=== PATIENT | female | born 1930 | race Caucasian/White ===

== ENCOUNTER 2016-04-07 14:42 | Inpatient (IN) | payer OTHER ==
--- NOTE | 2016-04-07 15:12 | EKG Report ---
Test Performed on : 04/07/2016 3:03:03 PM Test Reason : Stroke like symptoms Blood Pressure : / mmHG Vent. Rate : 065 BPM Atrial Rate : 065 BPM P-R Int : 216 ms QRS Dur : 080 ms QT Int : 420 ms P-R-T Axes : 069 -37 -18 degrees QTc Int : 436 ms Sinus rhythm. with 1st degree AV block. Left axis deviation Moderate voltage criteria for LVH, may be normal variant Abnormal ECG When compared with ECG of 04-APR-2016 12:56, (Unconfirmed) No significant change was found Unconfirmed Result
[2016-04-07 15:16] LABS: MANUAL DIFF NEEDED? NO
[2016-04-07 15:21] LABS: BASO% 0.4 % (0.0-0.8); EOS# 0.37 X1000 (0.0-0.7); HEMATOCRIT 36.6 % (37.0-47.0); HEMOGLOBIN 12.2 g/dL (12.0-16.0); LYMPH# 1.88 X1000 (1.2-3.4); LYMPH% 20.5 % (20.5-51.1); MCH 31.9 PG (27-31); MCHC 33.3 g/dL (33-37); MCV 95.8 FL (81-99); MONO# 1.08 X1000 (0.11-0.59); MONO% 11.8 % (1.7-9.3); MPV 10.3 FL (7.4-10.4); NEUT% 63.3 % (42.2-75.2); PLT 324 X1000 (130-400); RBC 3.82 XMIL (4.2-5.4)
[2016-04-07 15:27] LABS: INR 0.97; PROTIME 10.3 Seconds (9.2-11.7); PTT 25.5 Seconds (22.0-36.0)
[2016-04-07 15:36] LABS: ALBUMIN 3.9 g/dL (3.5-5.0); CALCIUM 8.9 mg/dL (8.8-10.2); POTASSIUM 4.2 mmol/L (3.5-5.1); TOTAL BILIRUBIN 0.17 mg/dL (0.20-1.00); TOTAL PROTEIN 6.8 g/dL (6.3-8.3)
--- NOTE | 2016-04-07 15:44 | Diag Imaging Result Document ---
PROCEDURE NAME: HEAD W/O CONTRAST - 04/07/2016 CT HEAD WITHOUT CONTRAST: FINDINGS: A dose reduction protocol was used. Compared to 04/04/2016. There are chronic microvascular ischemic changes similar to the previous exam. There is no indication of recent infarct, although acute infarcts may not be immediately visible. There is no evidence of hemorrhage, mass effect, or midline shift. IMPRESSION: Chronic microvascular ischemic changes. No visible acute intracranial abnormality. No hemorrhage or mass effect.
--- NOTE | 2016-04-07 15:51 | Diag Imaging Result Document ---
PROCEDURE NAME: CHEST-1 VIEW - 04/07/2016 UPRIGHT SITTING AP CHEST: COMPARISON: 04/04/2016. FINDINGS: The lungs are well expanded. The heart is mildly prominent. This is similar to the prior exam. The vessels are not distended. No pneumonia. No pleural effusions identified. IMPRESSION: Stable chest.
--- NOTE | 2016-04-07 16:10 | PROVIDER DOCUMENTATION ---
HPI-Neurological Disorder - General Chief Complaint: Stroke-Like Symptoms Stated Complaint: HIGH B/P,LEFT LEG WEAKNESS,DIZZINESS Time Seen by Provider: 04/07/16 14:57 Source: patient, family (SON/DAUGHTER) Allergies/Adverse Reactions: Patient Allergies Allergy/AdvReac Type Severity Reaction Status Date / Time fexofenadine HCl * AdvReac Severe Unknown Verified 03/16/15 12:02 [From Bernadine-D 12 Hour] pseudoephedrine HCl * AdvReac Severe Unknown Verified 03/16/15 12:02 [From Bernadine-D 12 Hour] Home Medications: Levothyroxine [Synthroid] 100 microgm PO DAILY 06/17/12 Acebutolol [Sectral] 200 mg PO BID 04/04/16 Clonazepam [Klonopin] 1 mg PO HS 04/04/16 Lisinopril 10 mg PO DAILY 04/04/16 - History of Present Illness-Neuro Nature of Presenting Problem: 85 y/o F presents to ED cc of poss stroke. Son states pt was seen in ED on Monday due to dizziness and L leg numbness and increased BP. Son went to check on pt and she has gotten worse. Pt can now not put any weight on L leg and has been dragging when walking. Pt denies any CP/ABD PAIN. Pt is AOX3. Son and daughter states pt BP has been increasing since being seen on Monday. Daughter states pt has just been saying she is dizzy and "does not feel right". Severity: reports: mild Onset/Duration: reports: 5 days ago Timing: reports: still present Context: reports: none Character of Altered Mental Status: reports: N/A Any recent trauma/injury?: reports: none Character of Deficits: reports: new weakness (L leg), decreased ability to walk (no weight on L leg) New weakness or altered sensation location:: reports: other (L LEG) Cognitive Baseline: alert, oriented x3 Gait Baseline: uses a walker Associated Symptoms: reports: dizziness, weakness (L leg). denies: short of breath Similar Symptoms Previously?: Yes (wednesday 04/04) Recently seen or treated by another doctor?: Yes (wednesday 04/04) Review of Systems - Adult - REVIEW OF SYSTEMS - ADULT ROS:: ROS per family Constitutional: denies: chills, fever Cardiovascular: denies: chest pain, palpitations Respiratory: denies: cough, shortness of breath Gastrointestinal: denies: abdominal pain, diarrhea, nausea, vomiting Musculoskeletal: reports: muscle weakness (L leg/ not weight bearing). denies: bone pain Neurological: reports: dizziness/vertigo, slurred speech (mild). denies: headache/migraines, syncope Past History - Adult - PAST MEDICAL HISTORY-ADULT Review of Records: reports: Old Records Reviewed, Nursing Assessment Review Cardiovascular: reports: HTN, hyperlipidemia, other (stent) Respiratory: reports: asthma Endocrine/Immune: reports: thyroid disorder - PRIOR SURGERIES/PROCEDURES Surgical/Procedure History: reports: appendectomy, cholecystectomy, cardiac stent, tonsillectomy - IMMUNIZATION STATUS Childhood Immunizations: See Nurse Assessment Flu Vaccine: See Nurse Assessment - FAMILY HISTORY Family History: reviewed, not pertinent - SOCIAL HISTORY Smoking: denies Substance Use: none/never Alcohol Use Frequency: never Living Situation: alone Physical Exam- Neurological - Physical Exam-Neuro General Appearance: appears well, alert, no apparent distress HENMT: normocephalic/atraumatic, moist mucous membranes Head Injury: no evidence of injury Neck: non-tender, full range of motion Respiratory: chest non-tender, lungs clear, normal breath sounds Cardiovascular: normal peripheral pulses, regular rate, rhythm Lymphatic: no adenopathy Extremity: normal range of motion, non-tender Motor/Sensory: no motor deficit, no sensory deficit Neurologic: grossly normal, no motor/sensory deficits Integumentary: normal color, normal turgor, warm/dry Psych/Mental Status: normal mood/affect - Glascow Coma Scale Best Eye Response: (4) open spontaneously Best Verbal Response: (5) oriented Best Motor Response: (6) obeys commands Total Glascow Score: 15 Progress - PLAN OF CARE/RESULTS Progress/Plan/Lab Results: PLAN: HEAD SCAN, LABS. FAMILY VERBALLY UNDERSTANDS. Laboratory Tests 04/07/16 04/07/16 04/07/16 15:07 15:07 15:07 WBC 9.15 RBC 3.82 L Hgb 12.2 Hct 36.6 L MCV 95.8 MCH 31.9 H MCHC 33.3 RDW Std Deviation 12.5 Plt Count 324 MPV 10.3 Immature Gran % (Auto) 0.0 Neut % (Auto) 63.3 Lymph % (Auto) 20.5 [place] % (Auto) 11.8 H Eos % (Auto) 4.0 Baso % (Auto) 0.4 Immature Gran # (Auto) 0.00 Neut # 5.78 Lymph # 1.88 [place] # 1.08 H Eos # 0.37 Baso # 0.04 PT 10.3 INR 0.97 PTT (Actin FS) 25.5 Sodium 140 Potassium 4.2 Chloride 101 Carbon Dioxide 25 Anion Gap 14 BUN 17 Creatinine 1.0 H Estimated GFR/1.73 m2 53 BUN/Creatinine Ratio 17 Glucose 104 Calculated Osmolality 281 Calcium 8.9 Total Bilirubin 0.17 L AST 18 ALT 13 Alkaline Phosphatase 121 H Troponin T Total Protein 6.8 Albumin 3.9 Globulin 2.9 Albumin/Globulin Ratio 1.3 04/07/16 15:07 WBC RBC Hgb Hct MCV MCH MCHC RDW Std Deviation Plt Count MPV Immature Gran % (Auto) Neut % (Auto) Lymph % (Auto) [place] % (Auto) Eos % (Auto) Baso % (Auto) Immature Gran # (Auto) Neut # Lymph # [place] # Eos # Baso # PT INR PTT (Actin FS) Sodium Potassium Chloride Carbon Dioxide Anion Gap BUN Creatinine Estimated GFR/1.73 m2 BUN/Creatinine Ratio Glucose Calculated Osmolality Calcium Total Bilirubin AST ALT Alkaline Phosphatase Troponin T < 0.010 Total Protein Albumin Globulin Albumin/Globulin Ratio Orders Category Date Time Status Cardiac Monitoring DIRECTED Care 04/07/16 14:53 Active Finger Stick Blood Sugar (ED) DIRECTED Care 04/07/16 14:53 Active Saline Loc NOW Care 04/07/16 14:53 Active CHEST-1 VIEW [RAD] Stat Exams 04/07/16 14:53 Completed HEAD W/O CONTRAST [CT] Stat Exams 04/07/16 14:53 Completed CBC WITH ELECTRONIC DIFF [HEME] Stat Lab 04/07/16 15:07 Completed COMPREHENSIVE METABOLIC PANEL [CHEM] Stat Lab 04/07/16 15:07 Completed PROTIME WITH INR [COAG] Stat Lab 04/07/16 15:07 Completed PTT [COAG] Stat Lab 04/07/16 15:07 Completed TROPONIN T Stat Lab 04/07/16 15:07 Completed URINALYSIS W/POSS RFLX CULT [URINALYSIS] Stat Lab 04/07/16 14:53 Uncollected URINE DRUG SCREEN Stat Lab 04/07/16 14:53 Uncollected EKG [EKG] Stat Ther 04/07/16 14:53 Draft Vital Signs - 24 hr 04/07/16 14:50 Temperature 98.4 F Pulse Rate 72 Respiratory 16 Rate Blood Pressure 188/90 O2 Sat by Pulse 98 Oximetry - REASSESSMENT Reassessment #1 Time Reassessed: 16:45 Status: unchanged Reassessment Comment: pt still says she does not feel right. Reassessment #2 Time Reassessed: 17:08 Status: improving (family and pt are notified pt will be admitted for further evalution .) - XRAY 1 XRAY: Bilateral XRAY Study: Chest Impression: Normal XRAY Interpretation: stable chest - CT/MRI 1 CT Study: Head Impression: Abnormal (chronci microvascular ischemic changes. no visible acute intracranial adormality. No hemorrhage or mass effect.) CT Results: see impression - CONSULTS/PCP/HOSPITALIST Notification #1 *Consult/PCP/Hospitalist*: Time Discussed: 17:02 Consult Disposition: Admit Departure - Departure Time of Disposition Order: 16:50 DIAGNOSIS: CVA (cerebral vascular accident) Qualifiers: CVA mechanism: unspecified Qualified Code(s): I63.9 - Cerebral infarction, unspecified Hypertension Qualifiers: Hypertension type: unspecified secondary hypertension Qualified Code(s): I15.9 - Secondary hypertension, unspecified; I15 - Secondary hypertension Disposition: ADMITTED INPATIENT 09 Certified Medical Emergency: Emergent Condition: Stable Referrals: Bobby Olmstead MD [Primary Care Provider] - Attestation - Scribe Verification/Attestation Scribe:: Anita Jones Acting as Scribe for:: Heath Brothers Scribe documention review:: This chart was documented by a scribe and accurately reflects the service the provider performed and the decisions made by the provider.
--- NOTE | 2016-04-07 16:24 | ED EKG INTERP ---
EKG Interpretation - EKG Time of EKG reading by physician:: 15:03 EKG Read and Signed by:: Heath Brothers EKG Interpretation (*Must complete 3 of following elements*): Abnormal Rate: 65 Rhythm: sinus with 1st degree AV block [place]: left (deviation) QRS: LVH MS Interval: normal ST Wave: normal
[2016-04-07 17:45] LABS: URINE MICRO REVIEW NEEDED? NO; URINE SOURCE CLEAN CATCH
[2016-04-07 17:50] LABS: BILIRUBIN URINE NEGATIVE (NEGATIVE); BLOOD URINE NEGATIVE (NEGATIVE); COLOR YELLOW; GLUCOSE URINE NEGATIVE (NEGATIVE); LEUKOCYTES URINE MODERATE (NEGATIVE); NITRITE URINE POSITIVE (NEGATIVE); PROTEIN URINE NEGATIVE (NEGATIVE); TURBIDITY URINE CLEAR (CLEAR); UROBILINOGEN URINE NORMAL (NORMAL)
[2016-04-07 17:52] LABS: UR EPITHELIAL CELLS <10 /HPF (<10); URINE BACTERIA 4+ /HPF; URINE CULTURE NEEDED? YES; URINE RBC <10 /HPF (<10)
[2016-04-07 17:58] LABS: UR AMPHETAMINES QUAL NONE DETECTED (NONE DETECT); UR BARBITUATES QUAL NONE DETECTED (NONE DETECT); UR BENZODIAZEPIN QUAL NONE DETECTED (NONE DETECT); UR CANNABINOIDS QUAL NONE DETECTED (NONE DETECT); UR COCAINE QUAL NONE DETECTED (NONE DETECT); UR METHADONE QUAL NONE DETECTED (NONE DETECT); UR OPIATES QUAL NONE DETECTED (NONE DETECT); UR OXYCODONE QUAL NONE DETECTED (NONE DETECT); UR PCP QUAL NONE DETECTED (NONE DETECT)
--- NOTE | 2016-04-07 18:22 | HISTORY AND PHYSICAL ---
PRIMARY CARE PHYSICIAN: Bobby Olmstead MD CHIEF COMPLAINT: Left-sided weakness. HISTORY OF PRESENT ILLNESS: Ms. Morales is a very pleasant 85-year-old, female with a history of known coronary artery disease status post stenting, hypertension, hyperlipidemia, and hypothyroidism, who presents to the ER with left-sided weakness, hypertension and headache. She has been having symptoms actually since last week. She has been having reports of dizziness, left leg numbness and elevated blood pressure. She came to the ER on Monday, a head CT was done and it was found to be negative. She was sent home with a prescription for aspirin, which she is currently not on because she states she has had some type of reaction that caused her right hand to swell up. However, the specifics were unclear. She was taken off of her statin and aspirin by her information technology consultant at the time, Dr. Edwards. At any rate, since Monday her symptoms have not gotten any better. She has been having continued dizziness, continues to feel like she just "does not feel right" and she has also had left leg numbness. When she got to the ER today, a head CT was done, and again did not show anything acute. Her laboratory data is largely unremarkable. On physical examination the patient is awake, and oriented and she follows commands. She actually has no deficits at this time. As such, we are going to place her in the hospital overnight for observation. We will get an MRI in the morning and monitor her neurologic status overnight. PAST MEDICAL HISTORY: 1. Coronary artery disease status post stenting. 2. Hypertension. 3. Hyperlipidemia. 4. Hypothyroidism. PAST SURGICAL HISTORY: Bilateral cataract surgery, appendectomy, cholecystectomy, tonsillectomy, right shoulder arthroplasty. SOCIAL HISTORY: Patient lives alone. She is . She denies tobacco, alcohol or drug use. Strong family support at the bedside. FAMILY HISTORY: Noncontributory. REVIEW OF SYSTEMS: Ten point review of systems obtained and found to be negative with the exception of the HPI. HOME MEDICATIONS: Synthroid 100 mcg p.o. daily. Sectral 200 mg b.i.d. Klonopin 1 mg at bedtime. Lisinopril 10 mg p.o. daily. ALLERGIES: Bernadine D. PHYSICAL EXAMINATION: VITAL SIGNS: Blood pressure 188/90, heart rate 72, respiratory rate 16, O2 saturation 98% on room air. Temperature is 98.4 degrees. GENERAL: Pleasant elderly appearing 85-year-old, female, lying in hospital bed in no acute distress. NEUROLOGIC: The patient is awake, alert, and oriented. She follows commands and there are no appreciable focal deficits. HEENT: Head is atraumatic and normocephalic. Her pupils are equal, round, reactive to light. Oral mucosa is moist. Trachea is midline. No JVD or carotid bruits. CHEST: Clear to auscultation bilaterally. CARDIOVASCULAR: Regular rate and rhythm. S1-S2 is noted. No murmurs, gallops, clicks, or rubs. GI: Soft, nondistended, nontender. Bowel sounds are positive. EXTREMITIES: Without edema, clubbing or cyanosis. Pulses are palpable bilaterally. DIAGNOSTIC DATA: Head CT does not show anything acute, chronic changes noted. EKG shows normal sinus rhythm with first-degree AV block and left ventricular hypertrophy, no acute ST or T abnormalities. Chest x-ray does not show anything acute. WBC 9.15, hemoglobin 12.2, hematocrit 36.6, platelet count 324,000. Coagulase within normal limits. Chemistry is unremarkable. Troponins are negative. ASSESSMENT AND PLAN: 1. Reported left-sided weakness: Patient does not exhibit any focal deficits at this time. She is alert and oriented. We will check a magnetic resonance imaging of her brain in the morning, we will also check carotid ultrasound and echocardiogram, do neurologic checks overnight and allow for permissive hypertension and check a hemoglobin A1c and lipid panel in the morning. Patient could certainly stand to be put on aspirin and statin. However, her side effect is unclear at this time. We will inquire into this further. She did restart aspirin on Monday without any problems. 2. Coronary artery disease: We will check an echo, continue cardiac enzymes overnight and check a lipid panel in the morning. We will continue aspirin which was started on Monday, and likely add a statin pending her evaluation into the side effects of her statin. 3. Hyperlipidemia: Currently untreated. Please see numbers 1 and 2. 4. Hypothyroidism: We will check a thyroid function, B12 and folate and continue her Synthroid. 5. Further recommendations to follow. Dictated by NATHALIE Moreno for Raymond Dan MD
[2016-04-07] MEDS: ROCEPHIN 1 GM/NS 50 ML IV SCH (18:27)
[2016-04-07] MEDS ORDERED: APRESOLINE IV PRN (18:55)
[2016-04-07 20:04] LABS: FREE T4 1.13 ng/dL (0.93-1.70)
[2016-04-07] MEDS: ATIVAN PO SCH (21:44)
--- NOTE | 2016-04-07 22:40 | Diag Imaging Result Document ---
PROCEDURE NAME: HIP W/PELVIS BILAT 2 VIEWS - 04/07/2016 PELVIS AND BILATERAL HIPS, FIVE VIEWS: FINDINGS: No fracture or dislocation to either hip. No significant arthritic changes. The hip joints are symmetrical. IMPRESSION: No acute abnormality.
[2016-04-08 04:09] LABS: MCH 31.6 PG (27-31); MCHC 33.3 g/dL (33-37); MCV 94.7 FL (81-99); MPV 10.3 FL (7.4-10.4); RBC 4.12 XMIL (4.2-5.4)
[2016-04-08 04:23] LABS: HEMOGLOBIN A1C 5.1 % (4.8-6.0)
[2016-04-08 04:27] LABS: AGAP 14; BUN 15 mg/dL (8-22); CALCIUM 9.3 mg/dL (8.8-10.2); CHLORIDE 102 mmol/L (98-107); COSMO 284; SODIUM 142 mmol/L (136-145); TCO2 26 mmol/L (25-35)
[2016-04-08] MEDS: SYNTHROID PO SCH (06:24)
[2016-04-08] MEDS: LOVENOX SUBQ SCH (09:29)
[2016-04-08] MEDS: ASPIRIN PO SCH (12:22)
--- NOTE | 2016-04-08 13:05 | Diag Imaging Result Document ---
PROCEDURE NAME: MRI BRAIN W W/O CONTRAST - 04/07/2016 MRI OF THE BRAIN WITH AND WITHOUT GADOLINIUM: FINDINGS: There is extensive abnormal T2-weighted signal intensity in the periventricular white matter of both hemispheres. There are also punctate and patchy areas of increased signal intensity in the subcortical white matter, particularly over the left parietal lobe posteriorly. Some of these areas demonstrate decreased T1-weighted signal intensity, indicating chronic encephalomalacia. There are also 2 fairly old appearing lacunes present in the shanta. There is a small focus of restricted diffusion in the centrum semiovale/subcortical white matter of the parietal convexity on the left and a second area posterior to the atrium of the left ventricle on the left. There is also an area of restricted diffusion on the right side of the lower midbrain/shanta. There is no evidence of bleed or abnormal extraaxial fluid collection. There is an apparent anomalous vessel entering the right cerebellar hemisphere from the area of the tentorium. This is possibly an AV malformation, such as a venous angioma. Otherwise, there is no evidence of abnormal gadolinium enhancement. IMPRESSION: 1. Multifocal areas of restricted diffusion on top of extensive chronic microvascular ischemic white matter change. The multiple vascular territories represented would suggest the possibility of a central source of emboli. 2. 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 The findings were discussed with Peter Acosta at 1230 hours by telephone.
[2016-04-08] MEDS: PLAVIX PO SCH (13:36)
[2016-04-08] MEDS: CRESTOR PO SCH (13:36)
--- NOTE | 2016-04-08 13:40 | PROGRESS NOTE ---
DATE: 04/08/2016 Today Ms. Morales refers to be doing a whole lot better. Still complained to have the weakness in the left leg and the right arm. The patient refers to have some foul smelling urine but she does not have any burning. OBJECTIVE: Vital signs: Blood pressure is 158/57, pulse of 63, respirations 16, temperature is 98.4 degrees. General: Ms. Morales is an 85-year-old female. She was in bed. Not in any distress. HEENT: Mucosa is pink and moist. Anicteric. Acyanotic. Neck: Supple. Chest: Clear. Cardiovascular: Regular rate and rhythm. Abdomen: Soft, slightly distended but nontender. Bowel sounds were present. Extremities: No pedal edema. IMPROVEMENT ENGINEER: Patient is alert. She is oriented x4. She has about 4- power in the left lower extremity and upper extremity. The right side is normal. There is also a mild pronation drift on the right upper extremity. Reflexes are slightly hyperreflexive on the left side. Tone is normal bilaterally. Cranial nerves are intact. LABORATORY DATA: Reviewed, unremarkable. LABORATORY DATA: WBC is 9.88, hemoglobin is 13.0, platelet count 355,000. Chemistry reviewed completely normal. Total cholesterol is 247. A pelvic x-ray done yesterday is no acute abnormality. A CT scan of the brain which was done showed chronic microvascular changes. No visible acute intracranial abnormality. However an MRI done this morning shows multiple infarcts of unclear age. We will be waiting on the official report. CURRENT MEDICATIONS INCLUDE: Aspirin, ceftriaxone, levofloxacin, p.r.n. hydralazine and levothyroxine. A urine culture is also positive for gram-negative rods 100,000 colony formation units. ASSESSMENT: 1. Left-sided weakness likely due to CVA. Patient as I said has multiple infarcted areas on the on the DWI. Will still be pending on the official report. Depending on report we might ask Cardiology to evaluate the patient and then do a LEYDA to rule out cardiac emboli. 2. History of coronary artery disease noted. 3. Dyslipidemia. Will start the patient on statins. 4. Hypothyroidism. Continue with supplement with Synthroid. 5. Hypertension. For now we would allow for some permissive hypertension. We will discontinue the hydralazine p.r.n. 6. Gram-negative [place] urinary tract infection. Patient is on ceftriaxone. We will keep her on that until we have the ID and sensitivity.
--- NOTE | 2016-04-08 15:12 | CONSULTATION ---
DATE OF CONSULTATION: 04/08/2016 INDICATION FOR THE CONSULTATION: Stroke history. HISTORY OF PRESENT ILLNESS: Ms. Morales is an 85-year-old white female with a history of coronary disease, previous PCI, hypertension, hyperlipidemia, who presented with complaints of left-sided weakness as well as hypertension and headache. She was found to have extensive chronic microvascular ischemic changes in multiple vascular territories suggesting infarct and possible embolic source. On MRI imaging. Since that time, she thinks her weakness has improved. She has no swallowing deficits and no speech deficits. She has no history of stroke before. No recent issues with falls and she is not having any bleeding issues. PAST MEDICAL HISTORY: Significant for 1. Coronary disease with previous PCI. 2. Hyperlipidemia. 3. Hypertension. 4. Hypothyroidism. SOCIAL HISTORY: She does not smoke. She has lived alone. She is . No alcohol. REVIEW OF SYSTEMS: Ten system review of systems is negative except for those mentioned HPI. PHYSICAL EXAMINATION: VITAL SIGNS: She is afebrile. Heart rates are in the 50s to 70s. Most recent blood pressure is 158/67. GENERAL: No acute distress. HEENT: Oropharynx is moist. Normal dentition. Eye examination shows pink conjunctivae. White sclerae. NECK examination shows no obvious thyromegaly or thyroid tenderness. CARDIOVASCULAR: She is in a regular rate and rhythm. She has no obvious murmurs. No S3. No lower extremity edema. CHEST exam is clear to auscultation bilaterally. No increased work of breathing. ABDOMEN: Soft, nontender, nondistended. No obvious organomegaly. SKIN: Warm and dry throughout. There are no new rashes. NEUROLOGICAL: Her cranial nerves 2-12 are intact. She does not seem to have any lateralizing deficits in the cranial nerve territories. She does possibly have some very minimal weakness noted in the left upper extremity that seems different from the right, otherwise, unremarkable. PSYCHIATRIC: She is alert, oriented, pleasant. Normal mood and affect. Telemetry is unremarkable. EKG shows sinus rhythm, 65 beats per minute. First-degree AV block. LABORATORY DATA: Her laboratory data shows a white count of 9.8, hematocrit is 39, platelet count is 355,000. Her sodium is 142, potassium is 4. Her BUN is 15, creatinine 0.8. Her cardiac enzymes are negative times multiple sets. Her LDL was 189. ASSESSMENT: 1. Bilateral cerebrovascular accidents. 2. Hypertension. 3. Hyperlipidemia. Her echo will be reviewed. If there is any evidence of intracardiac thrombus then we would likely not have to proceed with LEYDA; otherwise, if she is here on Monday, we could perform the LEYDA; if not, she can have that done as an outpatient. I agree with current medications that she is currently on of aspirin and Plavix as well as high-dose statin therapy. She is currently in the permissive hypertension phase of her stroke treatment.
--- NOTE | 2016-04-08 16:52 | ECHO REPORT ---
ORDER DATE: 04/07/2016 STUDY: This is a 2D, M-mode, color Doppler exam. This is a technically satisfactory study. INTERPRETATION: 1. The left ventricle is normal in size without hypertrophy and with preserved overall systolic function. Estimated left ventricular ejection fraction is between 65% and 70%. 2. There is mild enlargement of left atrium. The right atrium is normal in size. 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 There is no evidence of shunting across this structure, however, on color Doppler. 3. The right ventricle has preserved size and function. 4. There is no pericardial effusion. 5. The aortic valve is trileaflet. The leaflets are sclerotic without evidence for stenosis or insufficiency. 6. The mitral valve is intact. There is mild mitral annular calcification. The tricuspid valve is intact. 7. There is mild mitral regurgitation and mild tricuspid regurgitation. 8. The peak pulmonary artery pressure is estimated to be between 25 and 30 mmHg. 9. No obvious intracardiac masses or thrombi are noted.
[2016-04-08] MEDS: ROCEPHIN 1 GM/NS 50 ML IV SCH (17:46)
[2016-04-08] MEDS: ATIVAN PO SCH (20:06)
[2016-04-09 05:54] LABS: HEMATOCRIT 37.1 % (37.0-47.0); HEMOGLOBIN 12.5 g/dL (12.0-16.0); MCH 32.4 PG (27-31); MCHC 33.7 g/dL (33-37); MCV 96.1 FL (81-99); MPV 10.2 FL (7.4-10.4); RBC 3.86 XMIL (4.2-5.4)
[2016-04-09] MEDS: SYNTHROID PO SCH (06:10)
[2016-04-09 06:20] LABS: AGAP 13; BUN 15 mg/dL (8-22); CALCIUM 9.1 mg/dL (8.8-10.2); CHLORIDE 102 mmol/L (98-107); COSMO 279; POTASSIUM 3.4 mmol/L (3.5-5.1); SODIUM 139 mmol/L (136-145); TCO2 24 mmol/L (25-35)
[2016-04-09] MEDS ORDERED: KLOR-CON PO ONE (09:32)
[2016-04-09] MEDS: CRESTOR PO SCH (09:58)
[2016-04-09] MEDS: PLAVIX PO SCH (09:58)
[2016-04-09] MEDS: ASPIRIN PO SCH (09:58)
[2016-04-09] MEDS: LOVENOX SUBQ SCH (09:58)
--- NOTE | 2016-04-09 17:12 | PROGRESS NOTE ---
DATE: 04/09/2016 SUBJECTIVE: Today Ms. Morales referred to be doing a whole lot better. She had a session with physical therapy and was told that she was doing fine. OBJECTIVE: Vital signs: Blood pressure is 156/65, pulse of 77, respirations 18 , temperature 98.4 degrees. General: Ms. Morales 85-year-old female. She was in bed. Did not seem to be in any distress. HEENT: Mucosa is pink and moist. Anicteric. Acyanotic. Neck: Supple. Chest: Clear. Cardiovascular: Regular rate and rhythm. Abdomen: Soft, slightly distended. Extremities: No pedal edema. GRAPHICS PROGRAMMER: Patient is alert, is oriented x4. There seems to be a residual left-sided weakness but otherwise neurological exam is intact. DIAGNOSTIC STUDIES: An MRI that was done 3 days ago shows multifocal areas of restricted diffusion on top of the extensive chronic microvascular ischemic changes. ASSESSMENT: 1. Left-sided weakness. Is improving. 2. 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 Patient has been evaluated by Cardiology and there is a plan to do a LEYDA on Monday. 3. History of coronary artery disease noted. 4. Dyslipidemia. Patient is on statin. 5. Hypothyroidism. Will continue with Synthroid. 6. Hypertension is relatively stable. We will continue to allow for some permissive hypertension. 7. Escherichia coli urinary tract infection. Patient is on ceftriaxone and we plan to continue the IV antibiotics until after the LEYDA then we will switch it. 8. Hypokalemia. We will replace this. [facility]
[2016-04-09] MEDS: ROCEPHIN 1 GM/NS 50 ML IV SCH (19:01)
[2016-04-09] MEDS: ATIVAN PO SCH (22:44)
[2016-04-10] MEDS: SYNTHROID PO SCH (06:14)
[2016-04-10 06:38] LABS: HEMATOCRIT 36.9 % (37.0-47.0); MCH 31.7 PG (27-31); MCHC 32.5 g/dL (33-37); MCV 97.4 FL (81-99); MPV 10.4 FL (7.4-10.4); RBC 3.79 XMIL (4.2-5.4)
[2016-04-10 07:39] LABS: AGAP 15; BUN 19 mg/dL (8-22); CALCIUM 8.9 mg/dL (8.8-10.2); CHLORIDE 105 mmol/L (98-107); COSMO 289; POTASSIUM 4.3 mmol/L (3.5-5.1); SODIUM 144 mmol/L (136-145); TCO2 24 mmol/L (25-35)
[2016-04-10] MEDS: LOVENOX SUBQ SCH (09:44)
[2016-04-10] MEDS: PLAVIX PO SCH (09:44)
[2016-04-10] MEDS: CRESTOR PO SCH (09:44)
[2016-04-10] MEDS: ASPIRIN PO SCH (09:44)
--- NOTE | 2016-04-10 14:27 | PROGRESS NOTE ---
DATE: 04/10/2016 SUBJECTIVE: Overall patient appears stable. She has no complaints today. OBJECTIVE: Heart rate is in the 70s, blood pressure is 152s over 60s. General: On exam this is a well-developed female. She is awake and alert. Chest: Clear. Cardiovascular: Reveals a regular rate and rhythm. Abdomen: Positive bowel sounds. Nontender. Extremities: There is no edema. IMPRESSION: Status post cerebrovascular accident. Patient's echocardiogram shows a thinned intraatrial septum with no obvious shunting. No other significant abnormality is noted. Patient is being considered for transesophageal echocardiogram.
[2016-04-10] MEDS: ROCEPHIN 1 GM/NS 50 ML IV SCH (17:02)
--- NOTE | 2016-04-10 17:59 | PROGRESS NOTE ---
DATE: 04/10/2016 SUBJECTIVE: Today Ms. Morales referred to be doing a whole lot better. She is just pending for a LEYDA to be done. OBJECTIVE: Vital signs: Blood pressure is 152/64, pulse of 70, respirations 16, temperature 97.7 degrees. General: Ms. Morales is an 85-year-old female. She was in bed. She did not seem to be in any distress. HEENT: Mucosa is pink and moist. Anicteric and acyanotic. Neck: Supple. Chest: Clear. Cardiovascular: Regular rate and rhythm. Abdomen: Soft, slightly distended, But nontender. No hepatosplenomegaly. Extremities: No pedal edema. TURKEY PINNER: Patient is alert, oriented x4. There is normal power, 5/5 in all extremities. Reflexes are normal bilateral. LABORATORY DATA: CBC reviewed, completely unremarkable. Chemistry reviewed, unremarkable. ASSESSMENT: 1. Left-sided weakness secondary to cerebrovascular accident has improved. 2. Multi-zonal cerebral infarct infarcts concerning for cardiac emboli. The patient has been scheduled for transesophageal echocardiogram tomorrow. 3. History of coronary artery disease, stable. 4. Dyslipidemia. Patient is on statin. 5. Hypothyroidism. We will continue with Synthroid. 6. Hypertension, controlled. 7. Escherichia coli urinary tract infection. Patient continues to be on ceftriaxone until after the transesophageal echocardiogram. 8. Hypokalemia is replaced. PLAN: Patient is doing a whole lot better. We will continue with the current antibiotics. Hope to switch it to oral once patient finishes the transesophageal echocardiogram. Patient has been evaluated by physical therapy and it looks like she should be able to do well going home. So once transesophageal echocardiogram is done and there is nothing grossly abnormal to hold her in the hospital, we will discharge her home.
[2016-04-10] MEDS: ATIVAN PO SCH (22:42)
[2016-04-11] MEDS: SYNTHROID PO SCH (06:15)
[2016-04-11] MEDS: ASPIRIN PO SCH (09:03)
[2016-04-11] MEDS: CRESTOR PO SCH (09:03)
[2016-04-11] MEDS: PLAVIX PO SCH (09:03)
[2016-04-11] MEDS: LOVENOX SUBQ SCH (09:04)
--- NOTE | 2016-04-11 12:22 | CONSULTATION ---
DATE OF CONSULTATION: 04/11/2016 REASON FOR CONSULTATION: Ms. Morales is 85 years old and it looks like she has had a stroke. History from the patient is that she had a little bit of baseline unsteady gait due to joint problems in her legs and otherwise was at baseline on . On morning she felt well. Around noon time on , she noted sudden onset of left-sided weakness, unsteady gait, a sense that "mouth was full" without definite dysarthria and without trouble chewing or swallowing. There was no vision disturbance. She had some headache which eventually resolved. There was no altered consciousness or collapse. She reports left sided weakness persisted and then began gradually improving in the last few days. She reports no previous history of stroke, seizure, serious head injury, other neurologic event. Workup this admission includes brain MRI with and without contrast, showing extensive white matter changes and bilateral areas of restriction on diffusion-weighted imaging. Plans are for her to have LEYDA when available. Admission blood pressures were 180s to 190s, mostly 150s and 160s systolically recently. She has been afebrile. Urine drug screen was all negative, but home medications include lorazepam 1 mg at bedtime. She reports previously being treated with medicine to lower cholesterol and she took clopidogrel in the past. She stopped clopidogrel a few years ago because of "burst blood vessel in my hand." She was not taking aspirin or clopidogrel prior to this admission but both of those have been started here. She reports taking medicine for cholesterol and stopped that a few years ago at the same time she stopped some other medicines. Not clear that she had any problems tolerating statin drug. She has been started on rosuvastatin here. PAST HISTORY: Is remarkable for ischemic heart disease, coronary stenting, hypertension, dyslipidemia, hypothyroidism. PHYSICAL EXAMINATION: On exam, she is awake, alert, attentive and appropriate. Speech is not dysarthric now. Language function is intact. I did not test her cognitive function. Head and neck are unremarkable. Visual valle are full, tested grossly by confrontational finger counting. Extraocular movements are full. Facial motility is diminished on the left in a mostly upper motor neuron pattern. Gag is intact. Tongue protrudes in the midline. She has good shoulder shrug on the right and slightly diminished shoulder shrug on the left. She has increased tone in the left arm. She did rapid alternating movements better with the right hand than on the left. She did well on [id number] testing bilaterally. Power grades 4/5 at the left deltoid and wrist extensor, 3/5 in the left biceps and 4+/5 in the left public area attendant and iliopsoas. Plantar response is extensor on the left and equivocal on the right. She reports good pinprick appreciation distally over the right and left limbs. Reflexes are 1+ at the wrists and absent at the ankles bilaterally. IMPRESSION: Left hemiparesis with relatively pure motor deficit. This is typical of subcortical, ischemic, nondominant, right hemisphere infarction. MRI shows more extensive acute ischemic change raising question of cardiac source of embolus. LEYDA is planned and cardiology has evaluated her. At this point, I would continue following blood pressure and allow that to continue in current range if tolerated. If she deteriorates clinically, we might consider increasing fluids and trying to raise blood pressure temporarily. I agree with continuing her statin and continuing aspirin and clopidogrel together. No urgent suggestions today. Thanks for asking me to see Ms. Morales. [facility]
--- NOTE | 2016-04-11 13:46 | PROGRESS NOTE ---
DATE: 04/11/2016 SUBJECTIVE: Ms. Morales has not any issues. She is tolerating oral intake. PHYSICAL EXAMINATION: Vital signs: Afebrile. Heart rate of 90, blood pressure 177/85. General: No acute distress. Cardiovascular: Regular rate and rhythm. She has no obvious murmurs. No S3. She has no lower extremity edema. Chest: Clear bilaterally. No increased work of breathing. Abdomen: Soft, nontender, nondistended. No obvious organomegaly. Skin Exam: Warm and dry throughout PERTINENT DATA: She has no recent laboratory data. ASSESSMENT: Stroke. PLAN: She has been placed n.p.o. after midnight. Plan will be for transesophageal echocardiogram in the morning if she is still here. Risks, benefits and alternatives explained to the patient. She agrees to proceed.
--- NOTE | 2016-04-11 16:47 | PROGRESS NOTE ---
DATE: 04/11/2016 SUBJECTIVE: Today, Ms. Morales is referred to be doing a whole lot better. She was just waiting for the LEYDA to be done. However, my understanding is that there is nobody to do it today and that the case technician will plan to do it tomorrow. OBJECTIVE: Vital Signs: Stable. Blood pressure is 167/82, pulse of 80, respirations 18, and temperature is 98.0. General: Ms. Morales is an 85-year-old female. She was in bed and seems to be in any distress. HEENT: Mucosa is pink and moist. Anicteric. Acyanotic. Neck: Supple. Chest: Clear. Cardiovascular: Regular rate and rhythm. Abdomen: Soft, nontender. KNIFE GLAZER: Patient is alert and oriented. He does not seem to have any motor deficit now. LABORATORY DATA: None for today. ASSESSMENT: 1. Left-sided weakness on presentation secondary to cerebrovascular accident. This has improved. 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 Patient has been scheduled for a LEYDA. We thought it was today, however, the cardiology has rescheduled it for tomorrow morning. 2. History of coronary artery disease, stable. 3. Dyslipidemia. Patient is on statin. 4. Hypothyroidism. Will continue with Synthroid. Hypertension is stable. E. Coli urinary tract infection. Will continue with ceftriaxone. 5. Hypokalemia, resolved. PLAN: Our general plan from the physical therapy report, patient seems to be pretty functional. Therefore if the LEYDA is normal, we will plan to discharge the patient home tomorrow.
[2016-04-11] MEDS: ROCEPHIN 1 GM/NS 50 ML IV SCH (18:26)
[2016-04-11] MEDS: ATIVAN PO SCH (21:54)
[2016-04-12] MEDS: SYNTHROID PO SCH (06:52)
[2016-04-12] MEDS: ASPIRIN PO SCH (08:08)
[2016-04-12] MEDS: PLAVIX PO SCH (08:08)
[2016-04-12] MEDS: CRESTOR PO SCH (08:08)
[2016-04-12] MEDS ORDERED: SODIUM CHLORIDE 0.9% 20 ML ONE (09:15)
[2016-04-12] MEDS ORDERED: XYLOCAINE 4% TOPICAL SOLUTION ONE (09:15)
[2016-04-12] MEDS ORDERED: HURRICAINE SPRAY (DOSE) ONE (09:15)
[2016-04-12] MEDS ORDERED: XYLOCAINE 2% VISCOUS ONE (09:15)
--- NOTE | 2016-04-12 10:24 | Carotid Study ---
DATE: 04/07/2016 PROCEDURE: Carotid duplex imaging. REFERRING PHYSICIAN: Raymond Dan MD. INTERPRETING PHYSICIAN: Jose Guadalupe Moreno MD. TECH: [employer]. INDICATIONS: The patient has left-sided weakness. OBSERVED DATA RIGHT LEFT Brachial Blood Pressure Carotid Pulse Bruits: Carotid/Sub DIAGRAM OF ULTRASOUND IMAGING R L RIGHT INT EXT INT EXT LEFT Aron (cm/s) Aron (cm/s) Subclavian 101/0 Subclavian 129/0 CCA Proximal 49/10 CCA Proximal 70/9 CCA Distal 48/12 CCA Distal 61/11 Bulb 51/14 Bulb 61/10 ICA Proximal 38/10 ICA Proximal 52/7 ICA Mid 32/8 ICA Mid 84/18 ICA Distal 43/11 ICA Distal 75/24 ECA 59/6 ECA 52/8 Vertebral 44/9 A Vertebral 43/10 A ICA/CCA Ratio 0.9 ICA/CCA Ratio 1.2 % Stenosis 0-39 % Stenosis 0-39 FINDINGS: There is some plaque noted in the right bulb. The left internal is noted to be quite tortuous. A right thyroid nodule is noted. INTERPRETATION: Plaque present in the right bulb but does not yet produce a stenosis of hemodynamic consequence. The left internal is noted to be quite tortuous. There is antegrade vertebral flow bilaterally. Coincidently noted is a right thyroid nodule.
--- NOTE | 2016-04-12 11:00 | PROGRESS NOTE ---
DATE: 04/12/2016 LOCATION: Room 471 B. Ms. Morales is groggy following LEYDA. I do not have the LEYDA report. She does not have any new neurologic deficit. Left hemiparesis seems about the same as yesterday on limited exam at the bedside today. Speech is a little bit dysarthric which may be medication effect right now. I discussed with family at the bedside concern for cardiac source of embolus in light of MRI evidence of bilateral acute ischemic change. Clinically, I think this was a relatively pure motor left hemiparesis event consistent with mostly subcortical right hemisphere lesion. I suspect she will continue to improve clinically from neurologic standpoint. No urgent suggestion. Thanks for asking me to see Ms. Morales. MTDD
[2016-04-12] MEDS: LOVENOX SUBQ SCH (11:02)
[2016-04-12] MEDS ORDERED: DIPRIVAN 1% ONE (11:35)
[2016-04-12] MEDS ORDERED: FENTANYL ONE (11:36)
[2016-04-12] MEDS ORDERED: XYLOCAINE-MPF 2% ONE (12:33)
[2016-04-12] MEDS ORDERED: EXTENSION SET 32 IN 4522 ONE (12:33)
[2016-04-12] MEDS ORDERED: NS 500 ML ONE (12:33)
[2016-04-12] MEDS ORDERED: ANESTHESIA PB SET 88 IN 5742 ONE (12:33)
[2016-04-12] MEDS: ROCEPHIN 1 GM/NS 50 ML IV SCH (17:30)
[2016-04-12] MEDS: ATIVAN PO SCH (21:07)
[2016-04-13] MEDS: SYNTHROID PO SCH (06:48)
[2016-04-13] MEDS: LOVENOX SUBQ SCH (09:12)
[2016-04-13] MEDS: CRESTOR PO SCH (09:12)
[2016-04-13] MEDS: ASPIRIN PO SCH (09:12)
[2016-04-13] MEDS: PLAVIX PO SCH (09:12)
--- NOTE | 2016-04-13 11:00 | ECHO REPORT ---
ORDER DATE: 04/12/2016 PROCEDURE: Cardiology was consulted and a transesophageal echocardiogram performed to rule out intracardiac clot or thrombus. DESCRIPTION OF PROCEDURE IN DETAIL: Informed consent was obtained from the patient. The patient was brought to the surgical OR area. Oropharynx was anesthetized using lidocaine swish and swallow and Cetacaine spray. Anesthesia was present. Please see detailed anesthesia records. She was given fentanyl and propofol. A transesophageal probe was easily passed into the esophagus and ultrasound pictures were obtained. There were no complications. FINDINGS: 1. Normal left ventricular cavity size. Estimated ejection fraction of 60%. The left atrium was normal. Left atrial appendage was normal. Pectinate muscles were noted. There was no clot noted in the left atrial appendage. 2. Right atrium was normal. 3. Interatrial septum was hypermobile. A saline contrast study was negative for patent foramen ovale. 4. Aortic valve leaflets are sclerosed, trileaflet opening normally. Pulmonic valve was normal. Tricuspid valve was normal. Mitral valve was normal. 5. Doppler studies revealed there was no aortic stenosis or regurgitation. There is mild mitral regurgitation. Trace tricuspid regurgitation. 6. There is no pericardial effusion. Ascending aorta had some layered plaque, descending aorta had layered plaque. There was no thrombus noted. CONCLUSIONS: 1. No obvious intracardiac mass or thrombus seen. 2. Saline contrast study was negative for patent foramen ovale. 3. Normal left ventricular cavity size. Estimated ejection fraction of 60%. 4. There was mild mitral regurgitation.
[2016-04-13 12:31] VITALS: BP 165/79
--- NOTE | 2016-04-13 12:43 | DISCHARGE SUMMARY ---
ADMISSION DATE: 04/07/2016 DISCHARGE DATE: 04/13/2016 CONSULTATIONS: 1. Dr. Lakesha Castillo of Cardiology. 2. Dr. Rin Mccurdy with Neurology. PERTINENT PROCEDURES: 1. Head CT shows chronic microvascular ischemic changes, no visible acute intracranial abnormality, no hemorrhage or mass effect. 2. Pelvis x-ray showed no acute abnormalities. 3. Brain MRI showed multifocal areas of restricted diffusion on top of the extensive chronic microvascular ischemic white matter changes, multiple vascular territories represented would suggest the possibility of a central source of emboli. 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 4. Carotid Doppler study showed plaque present in the right bulb but does not yet produce a stenosis of hemodynamic consequence. Left internal was noted to be quite tortuous. There is antegrade vertebral flow bilaterally. Coincidentally noted is a right thyroid nodule. 5. Echocardiogram showed an EF between 65% and 70%. 6. A LEYDA performed by Dr. Boland showed no obvious intracardiac mass or thrombus, EF of 60%, and mild mitral regurgitation. HOSPITAL COURSE: Ms. Morales is an 85-year-old female with a history of known coronary artery disease status post stenting, hypertension, hyperlipidemia, hypothyroidism who presented to ED with left-sided weakness, hypertension, and headache. She has been having symptoms since last week. She has been having reports of dizziness, left leg numbness and elevated blood pressures. She came to the emergency room on Monday. Head CT was done at that time and found to be negative. She was sent home with a prescription for aspirin which she is currently not on because she states she had some type of reaction that caused her right hand to swell up. She was taken off her statin and aspirin by her senior staff specialized employment at that time, Dr. Edwards. However, since the previous Monday, her symptoms have not gotten any better. She has been having continued dizziness and continued to feel like she just "does not feel right" along with the left leg numbness. Another head CT was performed that did not show anything acute. The laboratory data was largely unremarkable. On physical exam, the patient did not show any deficits at that time. She was admitted on observation status. MRI of the brain did show multifocal areas of restricted diffusion on top of extensive chronic microvascular ischemic white matter changes. Multiple vascular territories represented would suggest the possibility of central source of emboli. The patient also underwent a carotid Doppler along with echocardiogram. Cardiology was consulted. She was evaluated by Cardiology, and they plan to do a LEYDA on Monday to look for any intracardiac thrombi. The patient was also found to have an E. coli UTI. She was started on Rocephin. Her weakness did continue to improve. Dr. Mccurdy was also consulted. The patient was also placed on Plavix as well as Crestor along with aspirin. The patient, again, underwent a LEYDA on the that did not show any intracardiac mass or thrombus by Dr. Boland. From a physical therapy report, the patient seemed to be pretty functional with a normal LEYDA. The patient is being discharged back to [facility]. VITAL SIGNS AT THE TIME OF DISCHARGE: Temperature is 97.9, heart rate is 76, respirations 16, blood pressure 172/81, O2 is 96% on room air. DISCHARGE DIET: Healthy heart. DISCHARGE MEDICATIONS: 1. Synthroid 100 mcg p.o. daily. 2. Lisinopril 10 mg p.o. daily. 3. Sectral 200 mg p.o. b.i.d. 4. Aspirin 81 mg p.o. daily. 5. Lorazepam 1 mg p.o. at bedtime. 6. Crestor 40 mg p.o. daily. 7. Plavix 75 mg p.o. daily. DISCHARGE DIAGNOSES: 1. Left-sided weakness on presentation secondary to cerebrovascular accident with multizonal cerebral infarcts concerning for cardiac emboli. However, LEYDA was negative. The patient's weakness is improving. 2. History of coronary artery disease, stable. 3. Dyslipidemia. The patient has been placed on statin. 4. Hypothyroidism. Continue with Synthroid. 5. E. coli urinary tract infection. The patient did receive IV antibiotics. 6. Hypokalemia, resolved. FOLLOWUP: The patient is being discharged back to [facility]. She can follow up with Dr. Bobby Olmstead as indicated as well as Dr. Mccurdy. Discharge time is 35 minutes. Dictated by NATHALIE Garcia for Raymond Dan MD
== END 2016-04-13 13:09 | DRG 65 ==
LOC: ED 14:42 → 4N 18:39
PROVIDERS: ATTEND Internal Medicine
PROC: B24BZZ4 Ultrasonography of Heart with Aorta, Transesophageal (ICD-10-PCS; principal; 2016-04-12)
DX: I63.9 Cerebral infarction, unspecified (principal); G81.94 Hemiplegia, unspecified affecting left nondominant side; N39.0 Urinary tract infection, site not specified; E87.6 Hypokalemia; I10 Essential (primary) hypertension; B96.20 Unspecified Escherichia coli [E. coli] as the cause of diseases classified elsewhere; I25.10 Atherosclerotic heart disease of native coronary artery without angina pectoris; E78.5 Hyperlipidemia, unspecified; E03.9 Hypothyroidism, unspecified; J45.909 Unspecified asthma, uncomplicated; I44.0 Atrioventricular block, first degree; I25.2 Old myocardial infarction; I08.1 Rheumatic disorders of both mitral and tricuspid valves; Z79.899 Other long term (current) drug therapy; Z95.5 Presence of coronary angioplasty implant and graft
CPT/HCPCS: 36415; 70450; 70553; 71010; 71020; 73521; 80048; 80053; 80061; 81001; 82550; 82746; 82948; 83036; 83721; 83735; 83880; 84439; 84443; 84484; 85025; 85027; 85610; 85730; 87077; 87088; 87186; 92523; 93005; 93306; 93312; 93880; 96365; A9579; G0480; J0696; J1650; J3010; J7040; 92610-GN; 97001-GP; 97116-GP